=== PATIENT | male | born 1950 | race Caucasian/White ===

== ENCOUNTER → 2017-08-27 | Outpatient (CLI) | payer MEDICARE ==
[~2017-08-27] MED LIST: B12-1CHW CHEW; FLOV44AE IN; LISI40TA PO; NAPR220T95 PO; PROT40TA PO
--- NOTE | 2017-08-27 14:19 | MG ---
cc: JUAN CASTANON M.D. Lab No: [id number] Date: 08/27/2017 : 1950 Sex: M TECHNIQUE 17-channel EEG. DESCRIPTION The background rhythm reveals a symmetrical alpha rhythm, frequency 8 Hz, amplitude about 20 microvolts. There are no lateralizing features identified. There are no epileptiform features seen. During drowsiness there is mild slowing in the theta range. Hyperventilation was done with no change in the background rhythm. Photic stimulation results in a normal driving response. INTERPRETATION Normal EEG. MD TARAS Nelson/GLEN /2:10 PM /2:20 PM
== END ==
LOC: HEEG 08:21
PROVIDERS: ATTEND Psychiatry & Neurology Neurology
DX: R56.9 Unspecified convulsions (principal)
CPT/HCPCS: 95819